=== PATIENT | male | born 1970 | race African-American/Black ===

== ENCOUNTER 2021-07-23 18:12 | Emergency (ER) | payer MEDICAID ==
[~2021-07-23] VITALS: Ht 182.9 cm; Wt 82.0 kg
[2021-07-23 18:41] LABS: BASOPHILS % 0.9 % (0.0-2.0); EOSINOPHILS % 0.9 % (0.0-5.0); HEMATOCRIT. 44.4 % (42.0-52.0); HEMOGLOBIN. 15.1 g/dL (14.0-18.0); LYMPHOCYTES % 25.9 % (20.0-50.0); MEAN CORPUSCULAR HEMOGLOBIN 29.6 pg (28.0-32.0); MEAN CORPUSCULAR VOLUME 87.4 fL (80.0-94.0); MEAN PLATELET VOLUME 9.8 fl (7.4-10.4); MONOCYTES % 6.7 % (2.0-8.0); NEUTROPHILS % 65.6 % (40.0-76.0); PLATELET 169 x1000/uL (130-400); RED BLOOD CELL COUNT 5.08 mill/uL (4.7-6.1); RED CELL DISTRIBUTION WIDTH 15.6 % (11.6-14.6)
[2021-07-23 18:47] LABS: CHLORIDE 113 mEq/L (98-107)
[2021-07-23 18:49] LABS: PROTHROMBIN TIME 10.4 sec (9.6-11.0)
[2021-07-23 18:51] LABS: ETHANOL BLOOD < 10 mg/dL
[2021-07-23 19:08] LABS: CLARITY URINE CLEAR (CLEAR); COLOR URINE DARK YELLOW (YELLOW); KETONES URINE 1+ (NEGATIVE); LEUKOCYTE ESTERASE URINE TRACE (NEGATIVE); NITRITE URINE NEGATIVE (NEGATIVE); OCCULT BLOOD URINE 2+ (NEGATIVE); PROTEIN URINE 1+ (NEGATIVE); SPECIFIC GRAVITY URINE 1.022 (1.005-1.030)
[2021-07-23 19:22] LABS: *AMPHETAMINES SCREEN URINE NEGATIVE (NEGATIVE); *BARBITURATES SCREEN URINE NEGATIVE (NEGATIVE); *BENZODIAZEPINES SCREEN URINE NEGATIVE (NEGATIVE); *COCAINE SCREEN URINE PRESUMTIVE POSITIVE (NEGATIVE)
[2021-07-23 19:23] LABS: CANNABINOID URINE SCREEN PRESUMTIVE POSITIVE (NEGATIVE); METHADONE URINE SCREEN NEGATIVE (NEGATIVE); OPIATES URINE SCREEN NEGATIVE (NEGATIVE); PHENCYCLIDINE URINE SCREEN PRESUMTIVE POSITIVE (NEGATIVE)
[2021-07-23 20:15] VITALS: BP 151/98
== END 2021-07-23 20:51 | disposition home or self-care (01) ==
LOC: ER 18:12
DX: G93.40 Encephalopathy, unspecified (principal); T40.991A Poisoning by other psychodysleptics [hallucinogens], accidental (unintentional), initial encounter; Y92.9 Unspecified place or not applicable
CPT/HCPCS: 36415; 80053; 80305; 80320; 81003; 82962; 84484; 85025; 85610; 99283; Z7610; G0480

== ENCOUNTER 2023-06-06 04:17 | Emergency (ER) | payer MEDICAID ==
[~2023-06-06] VITALS: Ht 177.8 cm; Wt 77.0 kg
[2023-06-06 04:22] VITALS: BP 138/87; PULSE 100; RESP 22; TEMP 99.4; O2SAT 98
[2023-06-06] MEDS ORDERED: AMOX1TAB16 MT (05:34)
[2023-06-06] MEDS ORDERED: IBUP-2030 MT (05:34)
== END 2023-06-06 06:09 | disposition home or self-care (01) ==
LOC: ER 04:17
DX: K04.7 Periapical abscess without sinus (principal); I10 Essential (primary) hypertension
CPT/HCPCS: 99283

== ENCOUNTER 2023-07-31 01:14 | Emergency (ER) | payer MEDICAID ==
[~2023-07-31] VITALS: Ht 172.7 cm; Wt 70.0 kg
[~2023-07-31 01:14] MED LIST: AMOX1TAB16 MT; IBUP-2030 MT
[2023-07-31 01:15] VITALS: BP 143/96; PULSE 100; RESP 16; TEMP 98.4; O2SAT 100
[2023-07-31] MEDS ORDERED: KETOROLAC 30MG/ML VIAL IM ONE (04:30)
== END 2023-07-31 06:05 | disposition home or self-care (01) ==
LOC: ER 01:14
DX: M54.40 Lumbago with sciatica, unspecified side (principal); I10 Essential (primary) hypertension
CPT/HCPCS: 99283; 96372; J1885